=== PATIENT | female | born 1990 | race Caucasian/White ===

== ENCOUNTER 2016-08-01 11:55 | Emergency (ER) | payer MEDICAID ==
[2016-08-01 11:55] VITALS: BMI 25.7
[2016-08-01] MEDS ORDERED: Sodium Chloride 0.9% 1,000 ML ONE (12:09)
[2016-08-01 12:26] LABS: BASO # 0.1 K/uL (0.0-0.2); BASO % 0.4 % (0.0-2.0); EOS % 0.1 % (0.0-4.0); HEMATOCRIT 44.3 % (34.0-47.0); LYMPH # 1.3 K/uL (1.0-4.3); LYMPH % 10.6 % (20.0-40.0); MEAN CORPUSCULAR HEMOGLOBIN 27.6 pg (27.0-31.0); MEAN CORPUSCULAR HGB CONC 32.1 g/dL (33.0-37.0); MEAN PLATELET VOLUME 8.8 fL (7.2-11.7); MONO # 0.6 K/uL (0.0-0.8); MONO % 5.1 % (0.0-10.0); NRBC % 0.1 % (0.0-2.0); RED CELL DISTRIBUTION WIDTH 13.2 % (11.5-14.5); WHITE BLOOD COUNT 12.3 K/uL (4.8-10.8)
[2016-08-01 12:38] LABS: CHLORIDE 100 mmol/L (98-107)
[2016-08-01 12:39] LABS: POTASSIUM 4.5 mmol/L (3.6-5.2); SODIUM 140 mmol/L (132-148)
[2016-08-01 12:41] LABS: ALB/GLOB RATIO 1.1 (1.0-2.1); ALKALINE PHOSPHATASE 63 U/L (38-126); AST/SGOT 39 U/L (14-36); BILIRUBIN,TOTAL 0.8 mg/dL (0.2-1.3); BLOOD UREA NITROGEN 5 mg/dL (7-17); CARBON DIOXIDE 25 mmol/L (22-30); GFR AFRICAN-AMERICAN > 60; TOTAL PROTEIN 9.1 g/dL (6.3-8.3)
[2016-08-01 12:42] LABS: ALT/SGPT 26 U/L (9-52); CALCIUM 10.2 mg/dl (8.6-10.4); GLUCOSE,RANDOM 142 mg/dL (65-105)
[2016-08-01] MEDS ORDERED: Sodium Chloride 0.9% 1,000 ML IV ONE (12:58)
--- NOTE | 2016-08-01 13:15 | C.PDOC ---
History Of Present Illness <Sierra Verma - Last Filed: 08/01/16 18:49> <Jasen Fuller - Last Filed: 08/01/16 21:03> Patient is a 25 year old female who presents to the ER with a complaint of a burning, diffuse abdominal pain that is worse in the epigastic region. Patient states she has had multiple episodes of vomiting with yellow fluids and diarrhea. Patient reports having similar symptoms in December 2015, a CT was done and the results were negative for any abnormalities. Patient never followed up with GI. Patient denies any sick contacts, fever, or chills. (Sierra Verma) History Per: Patient History/Exam Limitations: no limitations Onset/Duration Of Symptoms: Hrs Current Symptoms Are (Timing): Still Present Location Of Pain/Discomfort: Diffuse, Epigastric (worse in epigastric area) Quality Of Discomfort: Burning Associated Symptoms: Diarrhea. denies: Fever, Chills <Sierra Verma - Last Filed: 08/01/16 18:49> <Jasen Fuller - Last Filed: 08/01/16 21:03> Time Seen by Provider: 08/01/16 12:27 Chief Complaint (Nursing): Abdominal Pain Past Medical History Reviewed: Historical Data, Nursing Documentation, Vital Signs - Medical History PMH: Denies: Sexually Transmitted Disease Family History: States: Unknown Family Hx - Social History Hx Tobacco Use: Yes Hx Alcohol Use: No Hx Substance Use: No - Immunization History Hx Tetanus Toxoid Vaccination: No Hx Influenza Vaccination: No Hx Pneumococcal Vaccination: No <Sierra Verma - Last Filed: 08/01/16 18:49> Vital Signs: Last Vital Signs Temp 98.9 F 08/01/16 19:30 Pulse 78 08/01/16 19:30 Resp 20 08/01/16 19:30 BP 131/86 08/01/16 19:30 Pulse Ox 99 08/01/16 19:30 - [facility] Procedures TETANUS TOXOID ADMINIST (07/21/14) Review Of Systems Constitutional: Negative for: Fever, Chills Cardiovascular: Negative for: Chest Pain, Palpitations Respiratory: Negative for: Shortness of Breath Gastrointestinal: Positive for: Vomiting (With yellow fluids), Abdominal Pain ( Diffuse, worse in epigastric region), Diarrhea <Sierra Verma - Last Filed: 08/01/16 18:49> Physical Exam - Physical Exam Appears: Non-toxic, Other (Rolling in pain) Skin: Normal Color, Warm, Dry Head: Atraumatic, Normacephalic Eye(s): bilateral: Normal Inspection Oral Mucosa: Dry Chest: Symmetrical, No Tenderness Cardiovascular: Rhythm Regular, No Murmur Respiratory: Normal Breath Sounds, No Rales, No Rhonchi, No Wheezing Gastrointestinal/Abdominal: Soft, Tenderness (Diffuse, worse in epigastric area) , No Distention, Guarding (Voluntary), No Rebound Back: No CVA Tenderness Neurological/Psych: Oriented x3, Normal Speech, Normal Cognition <Sierra Verma - Last Filed: 08/01/16 18:49> ED Course And Treatment - Laboratory Results Result Diagrams: 08/01/16 12:23 08/01/16 12:23 Urine POC: Negative O2 Sat by Pulse Oximetry: 100 (Room air) Pulse Ox Interpretation: Normal Progress Note: Ativan IVP, Pepcid IVP, Maalox PO, Reglan IVPB, IV fluids, Toradol IVP, and Zofran IVP were administered. POC urine test, abdomen ultrasound, and labs ordered. <Sierra Verma - Last Filed: 08/01/16 18:49> - Laboratory Results Result Diagrams: 08/01/16 12:23 08/01/16 12:23 O2 Sat by Pulse Oximetry: 99 Pulse Ox Interpretation: Normal Progress Note: Upon provider reevaluation patient is feeling better, is medically stable, and requires no further treatment in the ED at this time. Patient will be discharged home with Rx for Carafate . Counseling was provided and all questions were answered regarding diagnosis and need for follow up with the referred clinic, and biometrics analyst. There is agreement to discharge plan. Return if symptoms persist or worsen. Reevaluation Time: 21:00 Reassessment Condition: Improved <Jasen Fuller - Last Filed: 08/01/16 21:03> Medical Decision Making <Sierra Verma - Last Filed: 08/01/16 18:49> <Jasen Fuller - Last Filed: 08/01/16 21:03> Medical Decision Making: pt still with diffuse abdominal pain after multiple medications. vomiting has stopped for now after ativan, zofran and reglan. morphine for pain and ct scan ordered. 648 pt drank most of contrast, then vomited small amt. pain controlled after morphine. (Sierra Verma) Disposition - Disposition Disposition Time: 18:49 <Sierra Verma - Last Filed: 08/01/16 18:49> Counseled Patient/Family Regarding: Studies Performed, Diagnosis, Need For Followup, Rx Given - Disposition Disposition Time: 19:00 <Jasen Fuller - Last Filed: 08/01/16 21:03> - Disposition Referrals: [facility] [Outside] [facility] [Outside] Sj Patel MD [Staff Provider] - Disposition: HOME/ ROUTINE Condition: FAIR Prescriptions: Sucralfate [Carafate] 1 gm PO QID #40 tab Instructions: Abdominal Pain (ED), Gastritis (DC) - Clinical Impression Clinical Impression: Nausea, Vomiting - Scribe Statement The provider has reviewed the documentation as recorded by the Scribe <Sierra Verma - Last Filed: 08/01/16 18:49> <Jasen Fuller - Last Filed: 08/01/16 21:03> - Scribe Statement Dale Bernardo All medical record entries made by the Scribe were at my direction and personally dictated by me. I have reviewed the chart and agree that the record accurately reflects my personal performance of the history, physical exam, medical decision making, and the department course for this patient. I have also personally directed, reviewed, and agree with the discharge instructions and disposition. (Sierra Verma) Physician Patient Turnover Patient Signed Over To: Jasen Fuller Handoff Comments: f/u ct scan. re-eval. possible admit for intractable vomiting <Sierra Verma - Last Filed: 08/01/16 18:49>
[2016-08-01] MEDS ORDERED: Aluminum Hydroxide/Magnesium Hydroxide Susp (30 mL) PO STA (14:03)
[2016-08-01] MEDS ORDERED: Aluminum Hydroxide/Magnesium Hydroxide Susp (30 mL) ONE (14:07)
[2016-08-01 14:34] LABS: RBC URINE 1 /hpf (0-3); URINE BACTERIA RARE (<OCC); URINE BILIRUBIN NEGATIVE (NEGATIVE); URINE BLOOD NEGATIVE (NEGATIVE); URINE GLUCOSE (UA) NORMAL (Normal); URINE KETONE 1+ mg/dL (NEGATIVE); URINE LEUKOCYTE ESTERASE TRACE Leu/uL (Negative); URINE PROTEIN 1+ mg/dL (NEGATIVE); URINE UROBILINOGEN NORMAL mg/dL (0.2-1.0)
[2016-08-01 14:36] LABS: URINE COLOR YELLOW (YELLOW)
[2016-08-01 14:37] LABS: WBC URINE 1 /hpf (0-5)
[2016-08-01 15:39] VITALS: RESP 20
--- NOTE | 2016-08-01 16:10 | US ---
HISTORY: epigastric pain and vomiting COMPARISON: None. TECHNIQUE: Sonographic evaluation of the abdomen. FINDINGS: LIVER: Measures 15.5 cm. Normal echogenicity of the liver parenchyma. No mass. No intrahepatic bile duct dilatation. GALLBLADDER: Unremarkable. No gallstones. COMMON BILE DUCT: Measures 3 mm. No stones. No dilatation. PANCREAS: Unremarkable as visualized. No mass. No ductal dilatation. RIGHT KIDNEY: Measures 10.3cm. Normal echogenicity. No calculus, mass, or hydronephrosis. LEFT KIDNEY: Measures 11.2cm. Normal echogenicity. No calculus, mass, or hydronephrosis. SPLEEN: Normal in size and contour. No mass. AORTA: No aneurysmal dilatation. IVC: Unremarkable. OTHER FINDINGS: None. IMPRESSION: Unremarkable abdominal sonogram.
[2016-08-01] MEDS ORDERED: Iohexol 240 (50 ml) PO STA (17:00)
[2016-08-01] MEDS ORDERED: Iohexol 240 (50 ml) ONE (17:10)
[2016-08-01] MEDS ORDERED: Iodixanol 320 MG/ML 100 ML BOTTLE IV ONE (18:11)
[2016-08-01] MEDS ORDERED: Morphine 4 MG/ML VIAL ONE (19:44)
--- NOTE | 2016-08-01 20:49 | CT ---
EXAM: CT Abdomen and Pelvis With Intravenous Contrast. CLINICAL HISTORY: 25 years old, female; Pain and signs and symptoms; Vomiting; Abdominal pain; Generalized; Additional info: Abd pain TECHNIQUE: Axial computed tomography images of the abdomen and pelvis with intravenous contrast. This CT exam was performed using one or more of the following dose reduction techniques: automated exposure control, adjustment of the mA and/or kV according to patient size, and/or use of iterative reconstruction technique. Coronal and sagittal reformatted images were created and reviewed. CONTRAST: 100 mL of visipaque 320 administered intravenously. EXAM DATE/TIME: 08/01/2016 5:00 PM COMPARISON: Prior CT abdomen and pelvis of 12/27/2015 FINDINGS: LOWER THORAX: No infiltrate seen in the lung bases. ABDOMEN: LIVER: Liver appears enlarged, and demonstrates diffuse fatty infiltration. GALLBLADDER AND BILE DUCTS: No CT evidence of acute cholecystitis. No evidence of significant biliary ductal dilatation. PANCREAS: No CT evidence of acute pancreatitis. SPLEEN: No acute abnormality of the spleen identified. ADRENALS: No acute abnormality of the adrenal glands identified. KIDNEYS AND URETERS: No acute abnormality of the kidneys identified. No evidence of significant hydrouereteronephrosis. STOMACH AND BOWEL: No acute abnormality of the stomach or duodenum identified. No evidence of small bowel obstruction. No acute abnormality of the colon identified. APPENDIX: Appendix is seen, and is within normal limits in appearance. PELVIS: BLADDER: No acute abnormality of the bladder identified. REPRODUCTIVE:No acute abnormality of the reproductive organs is seen. No acute abnormality of the uterus identified. No evidence of large adnexal masses. ABDOMEN and PELVIS: INTRAPERITONEAL SPACE: No evidence of free intraperitoneal air or fluid. BONES/JOINTS: No acute fractures or other acute bony abnormality noted. SOFT TISSUES: No acute abnormality of the visualized soft tissues is seen. VASCULATURE: No evidence of abdominal aortic aneurysm. No evidence of periaortic hemorrhage. LYMPH NODES: No evidence of diffuse lymphadenopathy. IMPRESSION: - No evidence of significant acute process. No definite cause for pain identified. - See above for remaining findings.
[2016-08-01 21:36] VITALS: BP 129/80; PULSE 62; TEMP 97.9; O2SAT 100
== END 2016-08-01 21:35 | disposition home or self-care (01) ==
LOC: C.ER 11:55
DX: R11.2 Nausea with vomiting, unspecified (principal)
CPT/HCPCS: 74177; 76700; 80053; 81001; 83690; 85025; 96374; 96375; 96376; 99285; J1885; J2060; J2270; J2405; J2765; J7040; Q9966; Q9967

== ENCOUNTER 2017-06-27 16:12 | Emergency (ER) | payer MEDICAID ==
[2017-06-27 16:12] VITALS: BMI 25.7
[2017-06-27 16:19] VITALS: TEMP 98.1
[2017-06-27] MEDS ORDERED: Sodium Chloride 0.9% 1,000 ML IV ONE ×2 (16:55→19:13)
[2017-06-27] MEDS ORDERED: Sodium Chloride 0.9% 1,000 ML ONE (17:02)
[2017-06-27 17:07] LABS: BASO # 0.1 K/uL (0.0-0.2); BASO % 0.5 % (0.0-2.0); EOS % 0.1 % (0.0-4.0); HEMOGLOBIN 12.9 g/dL (11.0-16.0); LYMPH # 0.7 K/uL (1.0-4.3); MEAN CELL VOLUME 84.8 fL (81.0-99.0); MEAN CORPUSCULAR HEMOGLOBIN 27.8 pg (27.0-31.0); MEAN CORPUSCULAR HGB CONC 32.8 g/dL (33.0-37.0); MEAN PLATELET VOLUME 9.2 fL (7.2-11.7); MONO # 0.3 K/uL (0.0-0.8); MONO % 2.9 % (0.0-10.0); NEUT # 10.7 K/uL (1.8-7.0); NEUT % 90.5 % (50.0-75.0); PLATELET COUNT 269 K/uL (130-400); RBC 4.65 Mil/uL (3.80-5.20); RED CELL DISTRIBUTION WIDTH 13.6 % (11.5-14.5); WHITE BLOOD COUNT 11.8 K/uL (4.8-10.8)
[2017-06-27 17:21] LABS: ALB/GLOB RATIO 1.3 (1.0-2.1); ALBUMIN 4.4 g/dL (3.5-5.0); ALT/SGPT 41 U/L (9-52); AST/SGOT 30 U/L (14-36); BLOOD UREA NITROGEN 11 mg/dL (7-17); CALCIUM 9.8 mg/dl (8.6-10.4); GFR AFRICAN-AMERICAN > 60; GFR NON-AFRICAN AMERICAN > 60; LIPASE 45 U/L (23-300)
--- NOTE | 2017-06-27 17:23 | C.PDOC ---
History Of Present Illness 26-year-old female, presents to the emergency department with complaints of abdominal pain that is associated with several episodes of non-bloody/non- bilious vomiting and non-bloody diarrhea since this morning. She admits to associated chills, but denies any fever. Patient describes pain as a cramping sensation and is non-radiating. Denies chest pain, shortness of breath, symptoms, back pain or any other associated symptoms. No other complaints at this time. Past records reviewed. Patient has had multiple ED visits for similar complaints. Time Seen by Provider: 06/27/17 16:41 Chief Complaint (Nursing): Abdominal Pain History Per: Patient History/Exam Limitations: no limitations Onset/Duration Of Symptoms: Hrs Current Symptoms Are (Timing): Still Present Past Medical History Reviewed: Historical Data, Nursing Documentation, Vital Signs Vital Signs: Last Vital Signs Temp 98.1 F 06/27/17 18:48 Pulse 102 H 06/27/17 18:48 Resp 18 06/27/17 18:48 BP 134/90 06/27/17 18:48 Pulse Ox 97 06/27/17 19:33 - Medical History PMH: Denies: Diabetes, Hepatitis, HIV, HTN, Seizures, Sexually Transmitted Disease - [facility] Procedures TETANUS TOXOID ADMINIST (07/21/14) Family History: States: No Known Family Hx - Social History Hx Tobacco Use: Yes Hx Alcohol Use: No Hx Substance Use: No - Immunization History Hx Tetanus Toxoid Vaccination: No Hx Influenza Vaccination: No Hx Pneumococcal Vaccination: No Physical Exam - Physical Exam Appears: Non-toxic, In Acute Distress (wretching and shivering) Skin: Normal Color, Warm, Dry, No Rash Head: Normacephalic Eye(s): bilateral: PERRL Nose: Normal Oral Mucosa: Moist Lips: Normal Appearing Neck: Normal ROM Cardiovascular: Rhythm Regular, No Murmur Respiratory: Normal Breath Sounds, No Accessory Muscle Use Gastrointestinal/Abdominal: Soft, Tenderness (diffusely), Guarding (voluntary) Extremity: Normal ROM, No Deformity, No Swelling Neurological/Psych: Oriented x3, Normal Speech ED Course And Treatment - Laboratory Results Result Diagrams: 06/27/17 17:02 06/27/17 17:02 Lab Interpretation: No Acute Changes O2 Sat by Pulse Oximetry: 97 (RA) Pulse Ox Interpretation: Normal Progress Note: Labs, UA ordered and reviewed. Patient treated with IVF, Zofran abd Bentyl. Reevaluation Time: 19:30 Reassessment Condition: Unchanged (Patient continues to c/o pain. States that she had no relief from Bentyl or IV fluids. Advised that we will no treat with narcotics but offered IV Reglan and Pepcid/Protonix. She agreed and 5 minutes later she took her own IV out and walked out without notifying the staff.) Disposition - Disposition Disposition: ELOPEMENT - ER ONLY Disposition Time: 19:32 Condition: STABLE - Clinical Impression Clinical Impression: Nausea & vomiting, Chronic abdominal pain - Scribe Statement The provider has reviewed the documentation as recorded by the Scribe (Raghu Ogden) All medical record entries made by the Scribe were at my direction and personally dictated by me. I have reviewed the chart and agree that the record accurately reflects my personal performance of the history, physical exam, medical decision making, and the department course for this patient. I have also personally directed, reviewed, and agree with the discharge instructions and disposition.
[2017-06-27 18:07] LABS: BANDS 1 % (0-2); BASOPHIL 1 % (0-2); LYMPHOCYTE 8 % (20-40); MONOCYTE 3 % (0-10); NEUTROPHIL 87 % (50-75); PLATELET ESTIMATE NORMAL (NORMAL); TOTAL CELLS COUNTED 100
[2017-06-27 18:11] LABS: LARGE PLATELETS PRESENT; OVALOCYTES SLIGHT; SMUDGE CELLS PRESENT
[2017-06-27 18:49] VITALS: BP 134/90; PULSE 102; RESP 18
[2017-06-27 19:33] VITALS: O2SAT 97
== END 2017-06-27 19:35 | disposition left against medical advice (07) ==
LOC: C.ER 16:12
DX: G89.29 Other chronic pain (principal); R10.9 Unspecified abdominal pain; R11.2 Nausea with vomiting, unspecified
CPT/HCPCS: 80053; 83690; 84702; 85025; 96361; 96372; 96374; 96375; 99284; J0500; J2405; J2765; J7040

== ENCOUNTER 2018-02-28 17:22 | Emergency (ER) | payer MEDICAID ==
[2018-02-28 17:22] VITALS: BMI 25.7
[2018-02-28 17:36] VITALS: RESP 21
[2018-02-28] MEDS ORDERED: Sodium Chloride 0.9% 1,000 ML IV ONE (17:42)
--- NOTE | 2018-02-28 17:47 | C.PDOC ---
Addendum entered and electronically signed by Tervor Ramirez MD 02/28/18 20:34: Addendum Addendum: 02/28/18 20:32 calm, cooperative @ d/c, but persistent bizarre affect. belly benign and repeatly moves with a forced valsalva maneuver seemingly without pain explained to use NSAIDS for menstrual cramp syndrome and occasional laxatives in case of abd colic and constipation Referred to [facility] for help with anxiety and some psych meds good for premenstrual syndrome diet and exercise educated Original Note: History Of Present Illness 27 yo female BIBA for evaluation of diffuse abdominal pin, associated with onn- bilious vomiting developed for psat 4 days. Pt denies fever, chills, recent illness, sore throat, CP, SOB, dyspnea, palpitation, hematemesis, melena, diarrhea, UTI sx. At the time of evaluation, appears in pain. <Alison Bradley - Last Filed: 02/28/18 18:53> History Per: Patient <Alison Bradley - Last Filed: 02/28/18 18:53> <Trevor Ramirez - Last Filed: 02/28/18 20:23> Time Seen by Provider: 02/28/18 17:32 Chief Complaint (Nursing): Abdominal Pain Past Medical History Reviewed: Historical Data, Nursing Documentation, Vital Signs Vital Signs: Last Vital Signs Temp 99.1 F 02/28/18 17:32 Pulse 73 02/28/18 17:32 Resp 21 02/28/18 17:32 BP 137/63 02/28/18 17:32 Pulse Ox 98 02/28/18 17:32 - Medical History PMH: Gastritis Denies: Diabetes, Hepatitis, HIV, HTN, Seizures, Sexually Transmitted Disease Surgical History: No Surg Hx - [facility] Procedures TETANUS TOXOID ADMINIST (07/21/14) Family History: States: Unknown Family Hx - Social History Hx Tobacco Use: Yes Hx Alcohol Use: No Hx Substance Use: No - Immunization History Hx Tetanus Toxoid Vaccination: No Hx Influenza Vaccination: No Hx Pneumococcal Vaccination: No <Alison Bradley - Last Filed: 02/28/18 18:53> Vital Signs: Last Vital Signs Temp 99.1 F 02/28/18 17:32 Pulse 73 02/28/18 17:32 Resp 21 02/28/18 17:32 BP 137/63 02/28/18 17:32 Pulse Ox 98 02/28/18 18:54 - [facility] Procedures TETANUS TOXOID ADMINIST (07/21/14) <Trevor Ramirez - Last Filed: 02/28/18 20:23> Review Of Systems Except As Marked, All Systems Reviewed And Found Negative. Constitutional: Negative for: Fever, Chills ENT: Negative for: Throat Pain Cardiovascular: Negative for: Chest Pain, Palpitations Respiratory: Negative for: Cough, Shortness of Breath Gastrointestinal: Positive for: Nausea, Vomiting, Abdominal Pain. Negative for: Diarrhea, Melena, Hematochezia, Hematemesis Genitourinary: Negative for: Dysuria, Frequency Musculoskeletal: Negative for: Neck Pain, Back Pain Skin: Negative for: Rash Neurological: Negative for: Altered Mental Status <Alison Bradley - Last Filed: 02/28/18 18:53> Physical Exam - Physical Exam Appears: Non-toxic, Other (in pain) Skin: Normal Color, Warm, Dry, No Rash Head: Normacephalic Eye(s): bilateral: PERRL Nose: Normal Throat: No Erythema, No Drooling Neck: Supple Cardiovascular: Rhythm Regular, No Murmur, No JVD Respiratory: No Decreased Breath Sounds, No Accessory Muscle Use, No Stridor, No Wheezing Gastrointestinal/Abdominal: Soft, Tenderness (diffuse), No Distention, No Guarding, No Rebound Back: No CVA Tenderness Extremity: Normal ROM, No Deformity, No Swelling Neurological/Psych: Oriented x3, Normal Speech <Alison Bradley - Last Filed: 02/28/18 18:53> ED Course And Treatment - Laboratory Results Result Diagrams: 02/28/18 18:15 02/28/18 18:15 Lab Interpretation: No Acute Changes O2 Sat by Pulse Oximetry: 98 Pulse Ox Interpretation: Normal Progress Note: Pt remained stable during the ED evaluation. Blood work review, mild leukocytosis noted. Case sign out to _ UA, UDS, CT A/P, re-eval, dispo- pending. <Alison Bradley - Last Filed: 02/28/18 18:53> - Laboratory Results Result Diagrams: 02/28/18 18:15 02/28/18 18:15 <Trevor Ramirez - Last Filed: 02/28/18 20:23> Medical Decision Making Medical Decision Making: signed over @ 1900, pt with belly colic x 3 days, h/o same h/o anxiety and intractable pain syndrome pt seen and examined, verbal and talkative, c/o belly pain, very anxious and moving about the bed agressively. ativan 1 mg IV for anxiety CT without significant finidngs this is 3rd CT of abd/pelvis, benign this and prior CT's with large stool R colon consider abd colic magnified by pt's anxiety disorder defer narcotics as they worsten constipation laxative tx overnight and re-eval in AM PRN <Trevor Ramirez - Last Filed: 02/28/18 20:23> Disposition - Disposition Disposition Time: 19:00 <Alison Bradley - Last Filed: 02/28/18 18:53> Doctor Will See Patient In The: Office Counseled Patient/Family Regarding: Studies Performed, Diagnosis <Trevor Ramirez - Last Filed: 02/28/18 20:23> - Disposition Disposition: HOME/ ROUTINE Condition: STABLE Forms: [employer] [facility] (H[place]) - Clinical Impression Clinical Impression: Nausea & vomiting, Abdominal pain, Anxiety Physician Patient Turnover Patient Signed Over To: Trevor Ramirez Handoff Comments: CT abd/pelvis, re-eval, dispo <Alison Bradley - Last Filed: 02/28/18 18:53>
[2018-02-28] MEDS ORDERED: Sodium Chloride 0.9% 1,000 ML ONE (18:03)
[2018-02-28 18:19] LABS: BASO % 0.4 % (0.0-2.0); EOS % 0.1 % (0.0-4.0); LYMPH # 1.2 K/uL (1.0-4.3); LYMPH % 9.2 % (20.0-40.0); MEAN CELL VOLUME 85.8 fL (81.0-99.0); MEAN CORPUSCULAR HEMOGLOBIN 28.3 pg (27.0-31.0); MEAN PLATELET VOLUME 7.8 fL (7.2-11.7); MONO # 0.7 K/uL (0.0-0.8); NEUT # 11.4 K/uL (1.8-7.0); NEUT % 85.3 % (50.0-75.0); PLATELET COUNT 341 K/uL (130-400); RBC 4.59 Mil/uL (3.80-5.20); WHITE BLOOD COUNT 13.4 K/uL (4.8-10.8)
[2018-02-28 18:32] LABS: ALB/GLOB RATIO 1.4 (1.0-2.1); ALBUMIN 4.8 g/dL (3.5-5.0); ALT/SGPT 37 U/L (9-52); AST/SGOT 24 U/L (14-36); BLOOD UREA NITROGEN 15 mg/dL (7-17); CALCIUM 9.7 mg/dl (8.6-10.4); GFR NON-AFRICAN AMERICAN > 60; LIPASE 86 U/L (23-300)
[2018-02-28 18:38] LABS: INR 1.2; PROTHROMBIN TIME 13.3 SECONDS (9.7-12.2)
[2018-02-28] MEDS ORDERED: Iodixanol 320 MG/ML 100 ML BOTTLE IV ONE (18:44)
[2018-02-28 18:57] LABS: HCG,QUALITATIVE URINE NEGATIVE (NEGATIVE); SQUAMOUS EPITHIAL 7 /hpf (0-5); URINE BILIRUBIN 1+ (NEGATIVE); URINE BLOOD 3+ (NEGATIVE); URINE CLARITY Hazy (Clear); URINE COLOR Amber (YELLOW); URINE GLUCOSE (UA) NORMAL (Normal); URINE LEUKOCYTE ESTERASE TRACE Leu/uL (Negative); URINE PROTEIN 2+ mg/dL (NEGATIVE)
[2018-02-28 19:25] LABS: LYMPHOCYTE 11 % (20-40); MONOCYTE 2 % (0-10); NEUTROPHIL 87 % (50-75); TOTAL CELLS COUNTED 100
[2018-02-28 19:26] LABS: PLATELET ESTIMATE NORMAL (NORMAL)
[2018-02-28] MEDS ORDERED: Magnesium Citrate Oral SOL (300 ml) PO STA (20:25)
[2018-02-28] MEDS ORDERED: Magnesium Citrate Oral SOL (300 ml) ONE (20:31)
[2018-02-28 20:38] VITALS: BP 121/82; PULSE 82; TEMP 98.3; O2SAT 99
[2018-02-28 20:51] LABS: BARBITURATES, UR NEGATIVE (NEGATIVE); PHENCYCLIDINE, UR NEGATIVE (NEGATIVE)
[2018-02-28 20:52] LABS: BENZODIAZEPINES, UR POSITIVE (NEGATIVE); OPIATES, UR POSITIVE (NEGATIVE)
--- NOTE | 2018-03-01 08:56 | CT ---
Date of service: 02/28/2018 PROCEDURE: CT Abdomen and Pelvis with contrast HISTORY: pain, vomiting COMPARISON: CT abdomen pelvis performed 08/01/16 TECHNIQUE: Contrast dose: 100 mL Visipaque 320 Radiation dose: Total exam DLP = 291.38 mGy-cm. This CT exam was performed using one or more of the following dose reduction techniques: Automated exposure control, adjustment of the mA and/or kV according to patient size, and/or use of iterative reconstruction technique. FINDINGS: Examination limited by paucity of intra-abdominal and intrapelvic fat. LOWER THORAX: No visible consolidation, pleural effusion, or pneumothorax. LIVER: Hypoattenuation of the liver compatible with hepatic steatosis. Hepatomegaly. GALLBLADDER AND BILE DUCTS: Gallbladder distension. PANCREAS: Unremarkable. SPLEEN: 8 mm probable splenule. Otherwise unremarkable. ADRENALS: Unremarkable. KIDNEYS AND URETERS: The kidneys enhance symmetrically. No hydronephrosis or obstructing calculus identified. VASCULATURE: No aortic aneurysm. No atherosclerotic calcification or mural plaque present. BOWEL: Stomach is nondistended. Lack of oral contrast limits evaluation for bowel pathology. Bowel loops appear within normal limits of caliber without evidence of obstruction. Transverse colon appears thick walled, possibly exaggerated by under distension. Probable small bowel wall thickening. Correlate clinically for possibility of colitis and/or enteritis. APPENDIX: The presumed appendix appears within normal limits of caliber. No secondary signs of acute appendicitis. PERITONEUM: No significant free fluid. No definite free air. LYMPH NODES: No bulky adenopathy identified. BLADDER: Thick-walled under distended urinary bladder. REPRODUCTIVE: Uterus is present. BONES: No acute osseous abnormality is detected. OTHER FINDINGS: None. IMPRESSION: Transverse colon appears thick walled, possibly exaggerated by under distension. Probable small bowel wall thickening. Correlate clinically for possibility of colitis and/or enteritis. Hepatomegaly. Hypoattenuation of the liver compatible with hepatic steatosis. Markedly distended gallbladder. No calcified gallstones appreciated. Recommend further evaluation with right upper quadrant ultrasound if indicated. Under distended thick-walled urinary bladder. Additional findings as above. Preliminary impression was provided by [facility].
== END 2018-02-28 20:37 | disposition home or self-care (01) ==
LOC: C.ER 17:22
DX: R10.9 Unspecified abdominal pain (principal); R11.2 Nausea with vomiting, unspecified; F41.9 Anxiety disorder, unspecified
CPT/HCPCS: 74177; 80053; 80324; 80345; 80346; 80349; 80353; 80358; 80361; 81001; 83690; 83992; 84703; 85025; 85610; 85730; 96361; 96374; 96375; 99284; C9113; J1885; J2060; J2405; J7030; Q9967

== ENCOUNTER 2018-06-28 13:12 | Emergency (ER) | payer MEDICAID ==
[2018-06-28 13:12] VITALS: BMI 25.7
[2018-06-28 13:31] VITALS: RESP 19; TEMP 99.7
[2018-06-28] MEDS ORDERED: Sodium Chloride 0.9% 1,000 ML IV ONE (14:30)
--- NOTE | 2018-06-28 14:30 | C.PDOC ---
History Of Present Illness 27 year old female presents to ED with complaint of recurrent nausea, vomiting, and chest burning for the past 3 days. She has had prior visits for similar symptoms in the past. Patient states she was discharged from [facility] yesterday and was admitted for the same symptoms. Patient states symptoms are still persistent. Patient still complains of chest burning. She denies diarrhea. Time Seen by Provider: 06/28/18 14:07 Chief Complaint (Nursing): Abdominal Pain History Per: Patient History/Exam Limitations: no limitations Onset/Duration Of Symptoms: Days (3), Persistent Current Symptoms Are (Timing): Still Present Quality Of Discomfort: Burning Associated Symptoms: Nausea, Vomiting. denies: Fever, Diarrhea Past Medical History Reviewed: Historical Data, Nursing Documentation, Vital Signs Vital Signs: Last Vital Signs Temp 99.7 F H 06/28/18 13:28 Pulse 62 06/28/18 13:28 Resp 19 06/28/18 13:28 BP 154/79 H 06/28/18 13:28 Pulse Ox 97 06/28/18 13:28 - Medical History PMH: Gastritis Denies: Diabetes, Hepatitis, HIV, HTN, Seizures, Sexually Transmitted Disease Surgical History: No Surg Hx - [facility] Procedures TETANUS TOXOID ADMINIST (07/21/14) Family History: States: Unknown Family Hx - Social History Hx Tobacco Use: Yes Hx Alcohol Use: No Hx Substance Use: No - Immunization History Hx Tetanus Toxoid Vaccination: No Hx Influenza Vaccination: No Hx Pneumococcal Vaccination: No Review Of Systems Constitutional: Negative for: Fever, Chills, Weakness Cardiovascular: Positive for: Chest Pain (burning sensation) Gastrointestinal: Positive for: Nausea, Vomiting. Negative for: Abdominal Pain, Diarrhea Neurological: Negative for: Weakness, Numbness, Dizziness Physical Exam - Physical Exam Appears: Non-toxic, Other (riding on stretcher, distractable, no acute intoxication) Skin: Normal Color, Warm, Dry Head: Atraumatic, Normacephalic Neck: Normal ROM, Supple Chest: Symmetrical, No Deformity Cardiovascular: Rhythm Regular, No Murmur Respiratory: No Accessory Muscle Use Gastrointestinal/Abdominal: Soft, Tenderness (epigastric ) Extremity: Capillary Refill (<2 seconds) Extremity: Bilateral: Atraumatic, Normal Color And Temperature Pulses: Left Radial: Normal, Right Radial: Normal Neurological/Psych: Other (anxious) ED Course And Treatment - Laboratory Results Result Diagrams: 06/28/18 14:46 06/28/18 14:46 O2 Sat by Pulse Oximetry: 97 (RA) Progress Note: Labs ordered with UA and drug screen. Patient given Benadryl PO, Lidocaine PO, Pepcid IVP, Protonix IVP, IV fluids, Zofran IVP, and Maalox PO. Upon reassessment, patient is resting comfortably, in no distress, and is stable for discharge. Patient is advised to follow up with clinic within 1-2 days. Patient is advised to return to ED if symptoms persist or worsen. Progress - Re-Evaluation Re-evaluation Note: 06/28/18 15:51 FEELS BETTER WISHES DC - Data Reviewed Data Reviewed: Lab, Diagnostic imaging, Old records Disposition Counseled Patient/Family Regarding: Studies Performed, Diagnosis, Need For Followup, Rx Given - Disposition Referrals: [facility] [Outside] [facility] [Outside] Disposition: HOME/ ROUTINE Disposition Time: 15:52 Condition: IMPROVED Prescriptions: Famotidine [Pepcid AC] 10 mg PO QN #30 tablet Ondansetron ODT [Zofran ODT] 4 mg PO TID PRN #12 odt PRN Reason: Nausea/Vomiting Pantoprazole [Protonix] 40 mg PO DAILY #30 ect Instructions: Gastritis (DC) Forms: [facility] ([place]) - Clinical Impression Clinical Impression: Nausea & vomiting, Anxiety - Scribe Statement The provider has reviewed the documentation as recorded by the Scribe (Valeria Gonzalez) All medical record entries made by the Scribe were at my direction and personally dictated by me. I have reviewed the chart and agree that the record accurately reflects my personal performance of the history, physical exam, medical decision making, and the department course for this patient. I have also personally directed, reviewed, and agree with the discharge instructions and disposition.
[2018-06-28] MEDS ORDERED: Lidocaine 102 MG in Sodium Chloride 0.9% 100 ML IV STA (14:31)
[2018-06-28] MEDS ORDERED: Aluminum Hydroxide/Magnesium Hydroxide Susp (30 mL) PO STA (14:32)
[2018-06-28] MEDS ORDERED: DiphenhydrAMINE 12.5 mg/5 ml LIQ UD (5 ml) PO STA (14:32)
[2018-06-28] MEDS ORDERED: Sodium Chloride 0.9% 1,000 ML ONE (14:37)
[2018-06-28 14:51] LABS: BASO # 0.1 K/uL (0.0-0.2); BASO % 0.8 % (0.0-2.0); EOS % 0.1 % (0.0-4.0); LYMPH # 2.1 K/uL (1.0-4.3); LYMPH % 16.2 % (20.0-40.0); MEAN CELL VOLUME 86.8 fL (81.0-99.0); MEAN CORPUSCULAR HEMOGLOBIN 28.6 pg (27.0-31.0); MEAN CORPUSCULAR HGB CONC 32.9 g/dL (33.0-37.0); MEAN PLATELET VOLUME 8.3 fL (7.2-11.7); MONO # 1.3 K/uL (0.0-0.8); MONO % 10.2 % (0.0-10.0); NEUT # 9.3 K/uL (1.8-7.0); NEUT % 72.7 % (50.0-75.0); RBC 4.2 Mil/uL (3.80-5.20); RED CELL DISTRIBUTION WIDTH 13.5 % (11.5-14.5); WHITE BLOOD COUNT 12.9 K/uL (4.8-10.8)
[2018-06-28 14:57] LABS: SQUAMOUS EPITHIAL 1 /hpf (0-5); URINE AMORPHOUS SEDIMENT FEW /ul (<OCC); URINE BILIRUBIN NEGATIVE (NEGATIVE); URINE BLOOD 1+ (NEGATIVE); URINE CLARITY Turbid (Clear); URINE COLOR Amber (YELLOW); URINE GLUCOSE (UA) NORMAL (Normal); URINE LEUKOCYTE ESTERASE TRACE Leu/uL (Negative); URINE PROTEIN 1+ mg/dL (NEGATIVE); URINE UROBILINOGEN NORMAL mg/dL (0.2-1.0)
[2018-06-28] MEDS ORDERED: Aluminum Hydroxide/Magnesium Hydroxide Susp (30 mL) ONE (14:59)
[2018-06-28 15:10] LABS: ALB/GLOB RATIO 1.6 (1.0-2.1); ALBUMIN 4.6 g/dL (3.5-5.0); ALT/SGPT 24 U/L (9-52); AST/SGOT 31 U/L (14-36); BLOOD UREA NITROGEN 9 mg/dL (7-17); CALCIUM 8.9 mg/dl (8.6-10.4); GFR NON-AFRICAN AMERICAN > 60; LIPASE 223 U/L (23-300)
[2018-06-28 15:13] LABS: BARBITURATES, UR NEGATIVE (NEGATIVE); BENZODIAZEPINES, UR NEGATIVE (NEGATIVE); PHENCYCLIDINE, UR NEGATIVE (NEGATIVE)
[2018-06-28 15:39] LABS: OPIATES, UR POSITIVE (NEGATIVE)
[2018-06-28] MEDS ORDERED: Potassium Chloride 20 mEq/15 ml LIQ UD PO STA (16:08)
[2018-06-28 16:09] VITALS: BP 157/81; PULSE 74
[2018-06-28 16:16] VITALS: O2SAT 97
== END 2018-06-28 16:11 | disposition home or self-care (01) ==
LOC: C.ER 13:12
DX: R11.2 Nausea with vomiting, unspecified (principal); F41.9 Anxiety disorder, unspecified
CPT/HCPCS: 80053; 80324; 80345; 80346; 80349; 80353; 80358; 80361; 81001; 83690; 83992; 84703; 85025; 96374; 96375; 99284; C9113; J2001; J2405; J7030